=== PATIENT | male | born 1950 | race Caucasian/White ===

== ENCOUNTER 2019-03-25 17:21 | Emergency (ER) | payer MEDICARE ==
[~2019-03-25] VITALS: Ht 190.5 cm; Wt 108.2 kg
[2019-03-25 17:32] VITALS: BP 131/64; TEMP 98.1
[2019-03-25] MEDS ORDERED: NORCO 325 MG-51 TAB PO (19:14)
[2019-03-25 20:16] VITALS: PULSE 86
== END 2019-03-25 20:19 | disposition home or self-care (01) ==
LOC: COL.ER 17:21
DX: S22.31XA Fracture of one rib, right side, initial encounter for closed fracture (principal); W19.XXXA Unspecified fall, initial encounter